=== PATIENT | female | born 1990 | race African-American/Black ===

== ENCOUNTER 2019-10-14 10:41 | Emergency (ER) | payer MEDICAID ==
[~2019-10-14] VITALS: Ht 170.2 cm; Wt 117.0 kg
--- NOTE | 2019-10-14 10:47 | NUR ---
CAME IN FOR PRESSURE LIKE CHEST PAIN NON RADIATING "FEELS LIKE A BALL PRESSING OVER MY CHEST, FEVER THAT STARTED LAST NIGHT, ALSO C/O HEADACHE AND GEN BODY PAIN. GAVE LAST AUGUST VIA , TO ER BED 9, HOOKED TO VP ANCILLARY AND POX, CHANGED TO HOSP GOWN, WARM BLANKET PROVIDED, PATIENT AO X 4, BREATHING EVEN AND UNLABORED, NAD NOTED. AWAITING MD YOUNG
--- NOTE | 2019-10-14 11:01 | NUR ---
DR NUNN AT BEDSIDE
[2019-10-14 11:25] LABS: BASOPHILS % (AUTO) 0.3 % (0.0-2.0); EOSINOPHILS % (AUTO) 0.5 % (0.0-6.0); HEMATOCRIT 38 % (33-45); HEMOGLOBIN 12.5 g/dL (11.5-14.8); LYMPHOCYTES # (AUTO) 1.4 /CMM (0.8-4.8); LYMPHOCYTES % (AUTO) 14.5 % (20.0-44.0); MEAN CORPUSCULAR HGB CONC 33 g/dl (31.0-36.0); MEAN CORPUSCULAR VOLUME 89 fL (82-100); MONOCYTES # (AUTO) 0.4 /CMM (0.1-1.30); MONOCYTES % (AUTO) 3.9 % (2.0-12.0); NEUTROPHILS # (AUTO) 7.9 /CMM (1.8-8.9); NEUTROPHILS % (AUTO) 80.8 % (43.0-81.0); PLATELET COUNT (AUTO) 235 /CMM (150-450); RED BLOOD CELL COUNT(AUTO) 4.25 MIL/uL (4.0-5.2); WHITE BLOOD COUNT (AUTO) 9.8 K/uL (4.3-11.0)
[2019-10-14 11:38] LABS: ALANINE AMINOTRANSFERASE 19 U/L (12-78); ALBUMIN 3.4 g/dL (3.4-5.0); ALKALINE PHOSPHATASE 93 U/L (46-116); ASPARTATE AMINOTRANSFERASE 13 U/L (15-37); BILIRUBIN,DIRECT 0.1 mg/dL (0.0-0.2); BILIRUBIN,TOTAL 0.4 mg/dL (0.2-1.0); CALCIUM, SERUM 9.1 mg/dL (8.5-10.1); CARBON DIOXIDE 27 mmol/L (21-32); CHLORIDE 103 mmol/L (98-107); CREATININE 0.9 mg/dL (0.6-1.3); GLUCOSE 102 mg/dL (74-106); POTASSIUM 3.9 mmol/L (3.5-5.1); SODIUM SERUM 139 mmol/L (136-145); TOTAL PROTEIN, SERUM 7.2 g/dL (6.4-8.2); UREA NITROGEN, BLOOD 15 mg/dL (7-18)
[2019-10-14] MEDS ORDERED: IOHEXOL-350 100 ML VIAL IV ONE (12:59)
[2019-10-14] MEDS ORDERED: IV NS 0.9% 250 ML IV ONE (13:00)
--- NOTE | 2019-10-14 13:29 | NUR ---
PATIENT BACK FROM CTA
--- NOTE | 2019-10-14 14:16 | NUR ---
IV removed. Catheter intact and site benign. Pressure and 4x4 applied to site. No bleeding noted.Patient discharged to home in stable condition. Written and verbal after care instructions given. Patient verbalizes understanding of instruction.
[2019-10-14 14:17] VITALS: BP 122/75
== END 2019-10-14 14:18 | disposition home or self-care (01) ==
LOC: ER 10:47
DX: R07.89 Other chest pain (principal); J11.1 Influenza due to unidentified influenza virus with other respiratory manifestations; Z98.890 Other specified postprocedural states
CPT/HCPCS: 36415; 71045; 71275; 80048; 80076; 84484; 84702; 84703; 85025; 85378; 93005; 99284; J7050; Q9967

== ENCOUNTER 2020-05-06 19:41 | Emergency (ER) | payer BC, MEDICAID ==
[~2020-05-06] VITALS: Ht 170.2 cm; Wt 117.0 kg
[2020-05-06 20:11] LABS: BASOPHILS % (AUTO) 0.3 % (0.0-2.0); EOSINOPHILS % (AUTO) 0.4 % (0.0-6.0); HEMATOCRIT 41 % (33-45); HEMOGLOBIN 13.6 g/dL (11.5-14.8); LYMPHOCYTES # (AUTO) 2.4 /CMM (0.8-4.8); LYMPHOCYTES % (AUTO) 26.9 % (20.0-44.0); MEAN CORPUSCULAR HGB CONC 33 g/dl (31.0-36.0); MEAN CORPUSCULAR VOLUME 95 fL (82-100); MONOCYTES # (AUTO) 0.5 /CMM (0.1-1.30); MONOCYTES % (AUTO) 5.7 % (2.0-12.0); NEUTROPHILS % (AUTO) 66.7 % (43.0-81.0); PLATELET COUNT (AUTO) 315 /CMM (150-450); RED BLOOD CELL COUNT(AUTO) 4.36 MIL/uL (4.0-5.2)
--- NOTE | 2020-05-06 20:15 | NUR ---
URINE COLLECTED. SENT TO LAB
[2020-05-06 20:16] LABS: APPEARANCE,URINE Clear (CLEAR); BILIRUBIN,URINE Negative (NEGATIVE); BLOOD, URINE Negative Ery/uL (NEGATIVE); COLOR,URINE Yellow (YELLOW); KETONES,URINE Negative (NEGATIVE); LEUKOCYTE ESTERASE ,URINE Negative (NEGATIVE); NITRITE, URINE Negative (NEGATIVE); PROTEIN,URINE Negative (NEGATIVE); UGLUCOSE Negative (NEGATIVE); UROBILINOGEN,URINE 0.2 EU/dL (0.2)
--- NOTE | 2020-05-06 20:18 | NUR ---
PT AMBULATORY TO ER BED C/O +SI DID NOT WANT TO DISCLOSE PLAN AT THIS TIME UNLESS SHE SPEAKING TO A MD. PT AOX4 RR EVEN AND UNLABORED. NO SOB NOTED. NO NVD AT THIS TIME. PT PLACED IN GOWN. SITTER WITHIN LINE OF SIGHT. PERSONAL BELONGINGS PLACED IN LOCKER. PT SEEN BY TRISTIN LOZANO.
[2020-05-06 20:19] LABS: CALCIUM, SERUM 9.5 mg/dL (8.5-10.1); CARBON DIOXIDE 26 mmol/L (21-32); CHLORIDE 102 mmol/L (98-107); CREATININE 0.8 mg/dL (0.6-1.3); GLUCOSE 106 mg/dL (74-106); POTASSIUM 3.8 mmol/L (3.5-5.1); SODIUM SERUM 140 mmol/L (136-145); UREA NITROGEN, BLOOD 14 mg/dL (7-18)
[2020-05-06 20:25] LABS: ACETAMINOPHEN 0 ug/ml (10-30); ALANINE AMINOTRANSFERASE 21 U/L (12-78); ALCOHOL, BLOOD < 3 mg/dL (0-0); ALKALINE PHOSPHATASE 70 U/L (46-116); ASPARTATE AMINOTRANSFERASE 15 U/L (15-37); BILIRUBIN,DIRECT 0.1 mg/dL (0.0-0.2); BILIRUBIN,TOTAL 0.3 mg/dL (0.2-1.0); SALICYLATE 1.3 mg/dL (2.8-20.0); TOTAL PROTEIN, SERUM 8.1 g/dL (6.4-8.2)
[2020-05-06] MEDS ORDERED: AZITHROMYCIN 250 MG TABLET PO ONE (20:30)
[2020-05-06] MEDS ORDERED: CEFTRIAXONE 500 MG VIAL IM ONE (20:30)
[2020-05-06] MEDS ORDERED: LIDOCAINE /MPF 1% VIAL 5 ML VIAL ONE (20:40)
[2020-05-06] MEDS ORDERED: CEFTRIAXONE 1 G VIAL ONE (20:40)
[2020-05-06] MEDS ORDERED: AZITHROMYCIN 250 MG TABLET ONE (20:41)
--- NOTE | 2020-05-06 21:20 | NUR ---
CALLED ARCHITECTURAL MODELER ALETA VILLATORO FOR EVALUATION. UNABLE TO LEAVE MESSAGE, MAILBOX FULL
--- NOTE | 2020-05-06 21:33 | NUR ---
[employer]: [phone] please call for any updates
--- NOTE | 2020-05-06 21:55 | NUR ---
SPOKE WITH TAPE TRANSFERRER ALETA VILLATORO FOR EVALUATION. ETA 1 HR
--- NOTE | 2020-05-06 22:24 | NUR ---
pt in bed sleeping comfortably. nad noted.
--- NOTE | 2020-05-07 02:00 | NUR ---
MANAGER VALUATION ALETA VILLATORO AT BEDSIDE FOR EVALUATION
--- NOTE | 2020-05-07 02:30 | NUR ---
CLINICAL INFORMATION FAXED TO [facility]
--- NOTE | 2020-05-07 02:57 | NUR ---
PER CJ FROM [facility], NO BEDS AVAILABLE AT THIS TIME
--- NOTE | 2020-05-07 04:23 | NUR ---
pt resting. no acute distress noted.
--- NOTE | 2020-05-07 06:56 | NUR ---
PT RESTING COMFORTABLY IN BED. VITAL SIGNS STABLE. NO ACUTE DISTRESS NOTED AT THIS TIME. SITTER STILL AT BEDSIDE, WILL CONTINUE TO MONITOR
--- NOTE | 2020-05-07 07:32 | NUR ---
patient in bed asleep, easily arousable by voice. hooked to monitor, will continue to monitor accordingly. sitter at bedside for safety
--- NOTE | 2020-05-07 12:36 | NUR ---
8:30 am While conducting chart review, this SW was informed that [place] [facility] [place]. This SW contacted Fredo at [facility] This SW followed up with Fredo and was informed that patients are currently being discharged and Fredo requested that this SW re-fax clinicals for intake
--- NOTE | 2020-05-07 12:36 | NUR ---
10:15am Molding Supervisor met with the patient for a voluntary psychiatric hospitalization. Patient is a 29 year-old female. Per MD note, patient came in with suicidal ideations and did not want to disclose plan. Patient was alert and oriented x4. Patient was lying in bed and receptive to speaking with this SW. Patient had her head covered and removed the sheets to speak with this SW. Patient was able to confirm demographics on face sheet including date of , social security number, and address. Patient currently resides with mother, sister, niece and her child. Patient currently receives [employer] approximately $278 a month and [employer] $671 a month. Patient reports that she drinks alcohol socially but did not want to report how much alcohol she consumes. Patient admits to drug use including estela, Adderall, and marijuana. Patient reports that she purchases these from people she knows. Patient denies cigarette use. Patient denies auditory and visual hallucinations. Patient reports current suicidal ideation with a plan to overdose on pills. Patient reports homicidal ideation of poisoning her ex-boyfriend who currently lives in [place], patient denies wanting to currently go to [place]. Patient reports speaking with another social media developer (patient referring to [employer] Set Up Operator Alexia) and wanting to go into treatment soon. Patient reports wanting voluntary psychiatric hospitalization. This SW informed this patient that she will send over necessary documentation to nearby hospital for review. This SW to fax over clinicals to Fredo at [facility] (fax). This SW to remain available for all needs regarding the patient.
--- NOTE | 2020-05-07 12:37 | NUR ---
10:50am This SW faxed clinicals to Fredo at [facility] (fax). This SW to remain available for all needs regarding the patient.
--- NOTE | 2020-05-07 14:36 | NUR ---
This SW spoke with Fredo regarding this patient. Fredo updated this SW that the patient has been accepted. This SW awaiting intake confirmation. Fredo informed this SW that this SW can contact Ticket Sorter Reynaldo if there is further delay. This SW to remain available for all needs regarding this patient.
--- NOTE | 2020-05-07 14:43 | NUR ---
ACCETED IN [facility] PER [facility]. GIVE REPORT TO UNIT 1 @ [phone] PER JOSIE
--- NOTE | 2020-05-07 14:52 | NUR ---
CALLED TRANSPORT [facility] [phone] ETA IS 60 MINS
--- NOTE | 2020-05-07 16:23 | NUR ---
PICKED UP BY [facility] IN SATABLE CONDITION. PATIENT WILL BE BROUGHT TO [facility]. CLINICALS PROVIDED TO EMT TO BE GIVEN TO PSYCH FACILITY.
--- NOTE | 2020-05-07 16:29 | NUR ---
Ambulance at bedside to fruit or nut picker the patient to take her to [facility] and verbalized that "i am not suicidal", notified and made aware. Called mom Kimber to pick her up, ETA 30 mins. Patient aware.
[2020-05-07 17:56] VITALS: BP 130/86
--- NOTE | 2020-05-07 17:57 | NUR ---
patient picked up by her mom jose francisco in no distress. Ambulatory with steady gait.
== END 2020-05-07 17:56 | disposition home or self-care (01) ==
LOC: ER 19:44
DX: R45.851 Suicidal ideations (principal); F32.9 Major depressive disorder, single episode, unspecified; E66.01 Morbid (severe) obesity due to excess calories; F43.10 Post-traumatic stress disorder, unspecified; F52.8 Other sexual dysfunction not due to a substance or known physiological condition; F12.90 Cannabis use, unspecified, uncomplicated; F15.10 Other stimulant abuse, uncomplicated; Z68.41 Body mass index [BMI] 40.0-44.9, adult; Z04.6 Encounter for general psychiatric examination, requested by authority; Z86.19 Personal history of other infectious and parasitic diseases
CPT/HCPCS: 36415; 80048; 80076; 80305; 80307; 80329; 81001; 84703; 85025; 87491; 87591; 96372; 99285; G0480; J0696; J3490; 81000-TC